=== PATIENT | female | born 1995 | race African-American/Black ===

== ENCOUNTER 2022-12-31 02:11 | Emergency (ER) | payer MEDICAID ==
[~2022-12-31] VITALS: Ht 162.6 cm; Wt 97.0 kg
[2022-12-31 02:19] VITALS: BP 110/66; PULSE 104; RESP 18; TEMP 98.2; O2SAT 100
[2022-12-31] MEDS ORDERED: ERYT1OIN6 EACHEYE ×2 (03:05→03:08)
== END 2022-12-31 03:12 | disposition home or self-care (01) ==
LOC: ER 02:11
DX: O26.893 Other specified pregnancy related conditions, third trimester (principal); H10.022 Other mucopurulent conjunctivitis, left eye; Z3A.31 31 weeks gestation of pregnancy
CPT/HCPCS: 99283